=== PATIENT | female | born 1975 ===

== ENCOUNTER 2023-12-06 07:17 | Day surgery (SDC) | payer MEDICAID ==
[~2023-12-06] VITALS: Ht 149.9 cm; Wt 64.4 kg
[2023-12-06] MEDS ORDERED: MEPERIDINE 100 MG INJ. 100 MG/ML VIAL ONE (08:13)
[2023-12-06] MEDS ORDERED: SIMETHICONE 40 MG/0.6 ML ML ONE (08:13)
[2023-12-06] MEDS ORDERED: MIDAZOLAM HCL 5 MG/5 ML VIAL ONE ×2 (08:13→09:08)
[2023-12-06 08:30] LABS: HCG,QUAL RESULT NEGATIVE (NEGATIVE)
[2023-12-06] MEDS ORDERED: ONDANSETRON HCL 4 MG/2 ML VIAL ONE (09:13)
[2023-12-06 12:32] VITALS: BP_SYST 103; PULSE 65; RESP 14; TEMP 97; O2SAT 100
== END 2023-12-06 10:30 | disposition home or self-care (01) ==
LOC: SMU 07:17 → SDS 07:17
PROVIDERS: ATTEND Internal Medicine
DX: R19.4 Change in bowel habit (principal); K63.5 Polyp of colon; K63.89 Other specified diseases of intestine; R19.7 Diarrhea, unspecified; G43.909 Migraine, unspecified, not intractable, without status migrainosus; K64.8 Other hemorrhoids; Z98.891 History of uterine scar from previous surgery
CPT/HCPCS: 45385; 45380; 84703; 88305; 99152; G0378; J2250; J2405; J2175